=== PATIENT | male | born 1995 | race Caucasian/White ===

== ENCOUNTER 2018-02-13 13:24 | Emergency (ER) | payer SELFPAY ==
[~2018-02-13] VITALS: Ht 185.4 cm; Wt 79.4 kg
[2018-02-13 13:26] VITALS: Ht 185.4 cm; Wt 79.4 kg
[2018-02-13 13:47] VITALS: BP 157/82
== END 2018-02-13 13:47 | disposition home or self-care (01) ==
LOC: ED 13:24
DX: J02.9 Acute pharyngitis, unspecified (principal)
CPT/HCPCS: J1100; J1885